=== PATIENT | female | born 1990 | race African-American/Black ===

== ENCOUNTER 2017-07-25 08:49 | Emergency (ER) | payer SELFPAY ==
[2017-07-25 09:13] LABS: Bilirubin Small (Negative); Blood, Urine Negative (Negative); Clarity Clear (Clear); Glucose, Urine (Dipstick) Negative (Negative); Leukocyte Negative (Negative); Nitrite Negative (Negative); Pregnancy Test - Urine (BHCG) Negative (Negative); Protein, Urine (Dipstick) Trace mg/dL (Neg-Trace)
[2017-07-25 09:14] LABS: Pregu Control Background? CLEAR/WHITE (CLR/WHITE); Pregu Control Bar Appear? YES (CONTROL BAR)
[2017-07-25 09:18] LABS: Specific Gravity 1.026 (1.002-1.036); Specific Gravity, Urine 1.026 (1.002-1.036)
[2017-07-25] MEDS ORDERED: traMADol HCl 50 MG TAB ONE (09:36)
[2017-07-25] MEDS ORDERED: Azithromycin 250 MG TAB ONE (09:36)
[2017-07-25] MEDS ORDERED: cefTRIAXone\\ROCEPHIN 500 MG VIAL ONE (09:37)
[2017-07-25] MEDS ORDERED: Lidocaine 1% 20 ML MDV ONE (09:38)
[2017-07-26 20:21] LABS: Chlamydia by PCR Not Detected (NotDetected); GC by PCR Not Detected (NotDetected)
== END 2017-07-25 10:12 | disposition home or self-care (01) ==
LOC: BURERS 08:49
DX: A64 Unspecified sexually transmitted disease (principal); J45.909 Unspecified asthma, uncomplicated; F32.9 Major depressive disorder, single episode, unspecified; F17.210 Nicotine dependence, cigarettes, uncomplicated
CPT/HCPCS: 81003; 81025; 87480; 87491; 87510; 87591; 87660; 96372; J0696; J2001